=== PATIENT | female | born 1940 | race Hispanic/Latino ===

== ENCOUNTER 2018-09-04 06:48 | Emergency (ER) | payer BC, MEDICARE ==
[2018-09-04 07:25] LABS: BASOPHILS % (AUTO) 0.6 % (0.0-5.0); EOSINOPHILS % (AUTO) 0.3 % (0.0-8.0); HEMATOCRIT 38.2 % (36-48); LYMPHOCYTES % (AUTO) 6.5 % (21.0-51.0); MEAN CORPUSCULAR HEMOGLOBIN 31.5 pg (27.0-33.0); MEAN CORPUSCULAR HGB CONC 33.9 g/dL (32.0-36.0); MEAN CORPUSCULAR VOLUME 92.7 fL (79-99); MONOCYTES % (AUTO) 5.9 % (3.0-13.0); NEUTROPHILS % (AUTO) 86.7 % (40.0-77.0); PLATELET COUNT (AUTO) 162 K/uL (130-400); RED BLOOD CELL COUNT(AUTO) 4.12 MIL/uL (4.00-5.50)
[2018-09-04 07:30] LABS: CREATININE 0.7 mg/dL (0.5-1.5); POTASSIUM 3.6 mmol/L (3.5-5.1)
[2018-09-04 07:37] LABS: INR 0.97 (0.85-1.15); PROTHROMBIN TIME 10.2 SEC (9.6-11.6)
[2018-09-04 07:40] LABS: ALBUMIN 3.2 g/dL (3.5-5.0); BILIRUBIN,TOTAL 0.7 mg/dL (0.2-1.0); TOTAL PROTEIN, SERUM 7.6 g/dL (6.0-8.3)
[2018-09-04] MEDS ORDERED: IOHEXOL 350 MG/ML 100ML INFUS..BTL IV ONE (07:43)
[2018-09-04] MEDS ORDERED: SODIUM CHLORIDE 0.9% 1000ML 1,000 ML IV ONE (08:12)
[2018-09-04 09:03] LABS: APPEARANCE,URINE Clear (CLEAR); BILIRUBIN,URINE Negative (NEGATIVE); COLOR,URINE Yellow (YELLOW); GLUCOSE, URINE (UA) Negative (NEGATIVE); KETONES,URINE Negative (NEGATIVE); LEUKOCYTE ESTERASE ,URINE Negative (NEGATIVE); NITRATE,URINE Negative (NEGATIVE); OCCULT BLOOD,URINE Negative (NEGATIVE); PH,URINE 8.5 (5.0-8.0); PROTEIN,URINE Negative (NEGATIVE); UROBILINOGEN,URINE 0.2 mg/dL (0.2-1.0)
[2018-09-04] MEDS ORDERED: IPRATROPIUM/ALBUTEROL SULFATE 3 ML SOLUTION IH ONE (09:25)
[2018-09-04] MEDS ORDERED: BENZONATATE 100 MG CAPSULE PO ONE (10:06)
[2018-09-04] MEDS ORDERED: ALBUTEROL SULFATE 0.083% 2.5 MG/3 ML INH IH ONE (10:14)
== END 2018-09-04 12:10 | disposition home or self-care (01) ==
LOC: EDH 06:48
DX: S50.812A Abrasion of left forearm, initial encounter (principal); V47.5XXA Car driver injured in collision with fixed or stationary object in traffic accident, initial encounter; Y93.89 Activity, other specified; Y92.89 Other specified places as the place of occurrence of the external cause; Y99.8 Other external cause status
CPT/HCPCS: 36415; 70450; 71260; 72125; 74177; 80053; 81003; 82550; 84484; 85025; 85610; 85730; 93005; 94640 ×2; 99285; J7030; Q9967

== ENCOUNTER 2023-07-24 08:16 | Day surgery (SDC) | payer OTHER ==
[2023-07-22 14:20] VITALS: PULSE 73; RESP 18
[2023-07-22 14:29] LABS: BASOPHILS # (AUTO) 0.03 K/uL (0.00-0.20); BASOPHILS % (AUTO) 0.4 % (0.0-5.0); EOSINOPHILS # (AUTO) 0.12 K/uL (0.00-0.70); EOSINOPHILS % (AUTO) 1.5 % (0.0-8.0); HEMATOCRIT 41.1 % (36-48); IMMATURE GRANULOCYTE ABSOLUTE 0.02 K/uL (0-1); LYMPHOCYTES # (AUTO) 1.8 K/uL (1.0-4.8); LYMPHOCYTES % (AUTO) 22.1 % (21.0-51.0); MEAN CORPUSCULAR HEMOGLOBIN 31.5 pg (27.0-33.0); MEAN CORPUSCULAR HGB CONC 32.6 g/dL (32.0-36.0); MEAN CORPUSCULAR VOLUME 96.5 fL (79-99); MONOCYTES # (AUTO) 0.7 K/uL (0.1-1.0); MONOCYTES % (AUTO) 8.3 % (3.0-13.0); NEUTROPHILS # (AUTO) 5.5 K/uL (1.8-7.7); NEUTROPHILS % (AUTO) 67.5 % (40.0-77.0); PLATELET COUNT (AUTO) 175 K/uL (130-400); RED BLOOD CELL COUNT(AUTO) 4.26 MIL/uL (4.00-5.50); RED CELL DISTRIBUTION WIDTH 13.3 % (11.0-15.5); WHITE BLOOD COUNT (AUTO) 8.1 K/uL (4.8-10.8)
[2023-07-22 14:34] LABS: CREATININE 0.6 mg/dL (0.5-1.0); POTASSIUM 3.7 mmol/L (3.5-5.1)
[2023-07-22 14:35] LABS: APPEARANCE,URINE CLEAR (CLEAR); BILIRUBIN,URINE NEGATIVE (NEGATIVE); COLOR,URINE YELLOW (YELLOW); GLUCOSE, URINE (UA) NEGATIVE (NEGATIVE); KETONES,URINE NEGATIVE (NEGATIVE); LEUKOCYTE ESTERASE ,URINE 500 Leu/uL (NEGATIVE); NITRATE,URINE NEGATIVE (NEGATIVE); OCCULT BLOOD,URINE NEGATIVE (NEGATIVE); PROTEIN,URINE 10 mg/dL (NEGATIVE); UROBILINOGEN,URINE 0.2 mg/dL (0.2-1.0)
[2023-07-22 14:36] LABS: INR <= 0.93 (0.85-1.15); PROTHROMBIN TIME 10.8 SEC (9.6-11.6)
[2023-07-22 14:36] LABS: ADD UA MICROSCOPIC YES
[2023-07-22 14:37] LABS: PARTIAL THROMBOPLASTIN TIME 26.5 SEC (26.3-35.5)
[2023-07-22 14:40] LABS: MUCUS,URINE FEW LPF (None Seen); SQUAMOUS EPITHELIAL CELL,UR RARE /HPF (0-2); WBC,URINE 51-100 /HPF (0-1)
[2023-07-22 15:02] LABS: B-TYPE NATRIURETIC PEPTIDE 111 pg/mL (0-100)
[~2023-07-24] VITALS: Ht 144.8 cm; Wt 61.2 kg
[2023-07-24] VITALS (10 sets, daily range): BP systolic 143–175; BP diastolic 41–60; PULSE 53–68; RESP 11–17
[~2023-07-24 08:16] MED LIST: AMLO-257 PO; APIX5TAB PO; MULT-952 PO
[2023-07-24] MEDS: 0.9%NACL 1000ML 1,000 ML IV ONE (09:00)
[2023-07-24] MEDS ORDERED: METO25TA6 PO (09:02)
[2023-07-24] MEDS ORDERED: MIDAZOLAM HCL 1 MG/ML 2ML VIAL ONE (13:14)
[2023-07-24] MEDS ORDERED: FENTANYL CITRATE PF 50 MCG/1 ML 2ML VIAL ONE (13:14)
[2023-07-24] MEDS ORDERED: LIDOCAINE HCL 400MG/20ML VIAL ONE (13:14)
[2023-07-24] MEDS ORDERED: IOHEXOL 350 MG/ML 100ML INFUS..BTL IV ONE (13:14)
[2023-07-24] MEDS ORDERED: BIVALIRUDIN 250 MG/VIAL IV ONE (13:14)
[2023-07-24] MEDS ORDERED: SODIUM BICARB 50MEQ 50ML VIAL 50 ML ONE (13:14)
[2023-07-24] MEDS ORDERED: IOHEXOL-350 75 ML VIAL IV ONE (13:14)
[2023-07-24] MEDS ORDERED: HEPARIN 10,000 UNIT/10ML (1,000 UNIT/ML) VIAL ONE (13:15)
[2023-07-24] MEDS ORDERED: NITROGLYCERIN 50MG VIAL ONE (13:15)
[2023-07-24] MEDS ORDERED: NICARDIPINE 25MG INJ IV ONE (13:15)
[2023-07-24] MEDS: 0.9% NACL 500ML IV.SOLN 500 ML IV SCH (14:55)
== END 2023-07-24 18:20 | disposition home or self-care (01) ==
LOC: DAH 08:16
PROVIDERS: ATTEND Internal Medicine Cardiovascular Disease
DX: R94.39 Abnormal result of other cardiovascular function study (principal); I25.10 Atherosclerotic heart disease of native coronary artery without angina pectoris; I49.3 Ventricular premature depolarization; I48.0 Paroxysmal atrial fibrillation; I25.2 Old myocardial infarction; I10 Essential (primary) hypertension; Z79.899 Other long term (current) drug therapy; Z98.890 Other specified postprocedural states; Z79.01 Long term (current) use of anticoagulants; Z82.49 Family history of ischemic heart disease and other diseases of the circulatory system
CPT/HCPCS: 80048; 83880; 85025; 85610; 85730; 87088; 81001; 36415; 71045; 93005; 93454; C1894 ×3; C1760; J3010; J3490 ×4; J7030; J1644 ×2; J2250; Q9967; A4215; A4222; A4221; A4663; A4216; A4606; Q9965; A4223 ×3; 96360; 96361; 99156; 99157; J0583

== ENCOUNTER → 2023-10-28 | Outpatient (CLI) | payer OTHER ==
[~2023-10-28] MED LIST changes: +METO25TA6 PO
== END | disposition home or self-care (01) ==
LOC: RAH 09:44
PROVIDERS: ATTEND Internal Medicine
DX: I70.201 Unspecified atherosclerosis of native arteries of extremities, right leg (principal); I70.202 Unspecified atherosclerosis of native arteries of extremities, left leg; R29.898 Other symptoms and signs involving the musculoskeletal system
CPT/HCPCS: 93925

== ENCOUNTER → 2024-01-09 | Outpatient (CLI) | payer OTHER ==
[2024-01-09 11:36] LABS: BASOPHILS # (AUTO) 0.02 K/uL (0.00-0.20); BASOPHILS % (AUTO) 0.3 % (0.0-5.0); EOSINOPHILS # (AUTO) 0.13 K/uL (0.00-0.70); EOSINOPHILS % (AUTO) 1.9 % (0.0-8.0); HEMATOCRIT 40.9 % (36-48); IMMATURE GRANULOCYTE ABSOLUTE 0.02 K/uL (0-1); LYMPHOCYTES # (AUTO) 1.4 K/uL (1.0-4.8); LYMPHOCYTES % (AUTO) 19.7 % (21.0-51.0); MEAN CORPUSCULAR HEMOGLOBIN 31.3 pg (27.0-33.0); MEAN CORPUSCULAR VOLUME 94.9 fL (79-99); MONOCYTES # (AUTO) 0.5 K/uL (0.1-1.0); MONOCYTES % (AUTO) 7.3 % (3.0-13.0); NEUTROPHILS # (AUTO) 4.9 K/uL (1.8-7.7); NEUTROPHILS % (AUTO) 70.5 % (40.0-77.0); PLATELET COUNT (AUTO) 190 K/uL (130-400); RED BLOOD CELL COUNT(AUTO) 4.31 MIL/uL (4.00-5.50); RED CELL DISTRIBUTION WIDTH 12.5 % (11.0-15.5)
[2024-01-09 11:38] LABS: CREATININE 0.8 mg/dL (0.5-1.0); POTASSIUM 3.7 mmol/L (3.5-5.1)
== END | disposition home or self-care (01) ==
LOC: RAH 10:12
PROVIDERS: ATTEND Urology
DX: K57.30 Diverticulosis of large intestine without perforation or abscess without bleeding (principal); K44.9 Diaphragmatic hernia without obstruction or gangrene; K76.0 Fatty (change of) liver, not elsewhere classified; N20.0 Calculus of kidney; R31.29 Other microscopic hematuria; R91.8 Other nonspecific abnormal finding of lung field; I70.90 Unspecified atherosclerosis; M47.815 Spondylosis without myelopathy or radiculopathy, thoracolumbar region
CPT/HCPCS: 36415; 74176; 80048; 85025

== ENCOUNTER → 2024-01-15 | Outpatient (CLI) | payer OTHER ==
[~2024-01-15] MED LIST changes: +IOHEXOL 350 MG/ML 100ML INFUS..BTL IV ONE
== END | disposition home or self-care (01) ==
LOC: RAH 07:57
PROVIDERS: ATTEND Urology
DX: N31.2 Flaccid neuropathic bladder, not elsewhere classified (principal); N20.0 Calculus of kidney; M47.816 Spondylosis without myelopathy or radiculopathy, lumbar region; R31.29 Other microscopic hematuria
CPT/HCPCS: 74400; Q9967

== ENCOUNTER 2024-03-16 11:39 | Observation (INO) | payer OTHER ==
[2024-03-15 10:11] VITALS: BP 199/88; PULSE 73; RESP 19; TEMP 97.3
[2024-03-15 10:19] LABS: HEMATOCRIT 42.7 % (36-48); MEAN CORPUSCULAR HEMOGLOBIN 30.9 pg (27.0-33.0); MEAN CORPUSCULAR HGB CONC 32.3 g/dL (32.0-36.0); MEAN CORPUSCULAR VOLUME 95.5 fL (79-99); RED BLOOD CELL COUNT(AUTO) 4.47 MIL/uL (4.00-5.50); RED CELL DISTRIBUTION WIDTH 12.7 % (11.0-15.5); WHITE BLOOD COUNT (AUTO) 7.7 K/uL (4.8-10.8)
[2024-03-15 10:21] LABS: APPEARANCE,URINE CLEAR (CLEAR); BILIRUBIN,URINE NEGATIVE (NEGATIVE); COLOR,URINE LIGHT-YELLOW (YELLOW); GLUCOSE, URINE (UA) NEGATIVE (NEGATIVE); KETONES,URINE NEGATIVE (NEGATIVE); LEUKOCYTE ESTERASE ,URINE NEGATIVE Leu/uL (NEGATIVE); NITRATE,URINE NEGATIVE (NEGATIVE); OCCULT BLOOD,URINE NEGATIVE (NEGATIVE); PROTEIN,URINE NEGATIVE (NEGATIVE); UROBILINOGEN,URINE 0.2 mg/dL (0.2-1.0)
--- NOTE | 2024-03-15 10:21 | EKG ---
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
[2024-03-15 10:30] LABS: ADD UA MICROSCOPIC NO
[2024-03-15 10:32] LABS: INR 0.98 (0.85-1.15); PROTHROMBIN TIME 10.6 SEC (9.6-11.6)
[2024-03-15 10:34] LABS: PARTIAL THROMBOPLASTIN TIME 24.8 SEC (26.3-35.5)
[2024-03-15 10:35] LABS: ALBUMIN 3.5 g/dL (3.5-5.0); BILIRUBIN,TOTAL 0.7 mg/dL (0.2-1.0); CREATININE 0.7 mg/dL (0.5-1.0)
--- NOTE | 2024-03-15 11:01 | HMCIMG ---
CHEST 2VWS HISTORY: Preop COMPARISON: 07/22/2023 FINDINGS: Frontal and lateral projections of the chest were obtained. There is no acute pulmonary infiltrates or failure. The heart is borderline enlarged. Aortic calcifications are seen. Degenerative changes are seen of the thoracolumbar spine. IMPRESSION: 1. No acute pulmonary infiltrates.
--- NOTE | 2024-03-15 13:17 | HP ---
PROPOSED DATE OF SURGERY: 03/16/2024 CHIEF COMPLAINT: Hematuria with abnormal bladder mucosa. HISTORY OF PRESENT ILLNESS: The patient is an 83-year-old female with abnormal bladder mucosa, scheduled for cystoscopy. Transurethral resection of bladder tumor and bladder biopsy are indicated procedures. Did request to proceed and did provide fully informed consent. No guarantees are given. Did obtain medical clearance for his certification. ALLERGIES: The patient's allergies are none. MEDICATIONS: Include amlodipine as well as metoprolol. PAST SURGICAL HISTORY: Coronary artery stent placement, hysterectomy, and right heart failure. FAMILY HISTORY: Negative for kidney stones. SOCIAL HISTORY: Five children and a . Does not smoke or drink. REVIEW OF SYSTEMS: She has no shortness of breath. No chest pain. Her appetite is good. No nausea, vomiting, constipation, or diarrhea. No headaches or dizziness or epistaxis or nosebleeds. No joint pain, joint swelling, limitation of movement, night sweats, fever, chills, or skin rash. PHYSICAL EXAMINATION: GENERAL: Elderly female. HEENT: Head atraumatic, normocephalic. Pupils are equal and reactive to light and accommodation. Extraocular motions are intact. No discharge from ears, nose, or throat. LUNGS: Lung barton are clear to auscultation. HEART: Heart sounds are best heard in the fifth intercostal space. ABDOMEN: Full, soft, nontender. BACK: No CVA tenderness. GENITALIA AND RECTAL: Deferred. EXTREMITIES: Show no cyanosis, clubbing, or edema. NEUROLOGIC: Remains awake, alert, and adequate. Neurologic grossly intact. No gross sensory deficits. IMPRESSION AND PLAN: Abnormal bladder mucosa with hematuria. She is scheduled for cystoscopy and bladder biopsy of indicated procedures. She has ____ Eliquis already for four days prior to her procedure and did provide fully informed consent. No guarantees are given. TID: [id number] RECEIPT: [id number]
[~2024-03-16] VITALS: Ht 142.2 cm; Wt 61.8 kg
[2024-03-16] VITALS (28 sets, daily range): BP systolic 108–190; BP diastolic 48–89; PULSE 54–78; RESP 6–18; TEMP 97.3–98.4; O2SAT 98–100
[~2024-03-16 11:39] MED LIST changes: -IOHEXOL 350 MG/ML 100ML INFUS..BTL IV ONE; -METO25TA6 PO; -MULT-952 PO
[2024-03-16] MEDS ORDERED: LIDOCAINE PF 100MG/5ML (2%) SYRINGE 5ML ONE (13:02)
[2024-03-16] MEDS ORDERED: proPOFol 10 MG/ML 20ML VIAL IV ONE (13:02)
[2024-03-16] MEDS ORDERED: rocuRONium bROMide 10MG/1ML 5ML VL ONE (13:03)
[2024-03-16] MEDS ORDERED: FENTanyl CITRate PF 50 MCG/1 ML 2ML VIAL ONE (13:03)
[2024-03-16] MEDS: ZOSYN 3.375GM+NS 50ML 50 ML ONE (14:02)
[2024-03-16] MEDS: LACTATED RINGERS 1000ML 1,000 ML IV ONE (14:02)
[2024-03-16] MEDS ORDERED: METO25TA6 PO (14:06)
[2024-03-16] MEDS ORDERED: GLYCOPYRROLATE 0.2 MG/ML 5 ML VIAL ONE (15:08)
[2024-03-16] MEDS: hydrALAZine 20MG/ML VIAL ONE (16:08)
[2024-03-16] MEDS: SUGAMMADEX SODIUM 200 MG/2 ML VIAL IV ONE (16:08)
--- NOTE | 2024-03-16 16:45 | OP ---
DATE OF PROCEDURE: 03/16/2024 PREOPERATIVE DIAGNOSES: Bladder neck polyps and hematuria. PROCEDURE PERFORMED: Cystoscopy, bladder neck polyp biopsies as well as bladder biopsies. POSTOPERATIVE DIAGNOSES: Bladder neck polyps and hematuria. Awaiting pathologic confirmation. ANESTHESIA: General. COMPLICATIONS: None. DRAINS: A 16-Faroese 3-way Saravia catheter. INDICATIONS FOR PROCEDURE: This is an 83-year-old female with microscopic hematuria, multiple bladder polyps at the bladder neck and erythematous mucosa bladder, scheduled for bladder biopsy under anesthesia with bladder polyp biopsies as well. All risks, benefits, alternatives and potential complications of this procedure were reviewed with the patient. Her concerns answered. She did request to proceed and did provide informed consent. FINDINGS: Bladder neck and urethra coapt well. Multiple bladder polyps are noted in the surrounding the entire circumference of the bladder neck. The ureteric normal position with clear bilaterally. No tumors noted in the bladder mucosa. There is area of erythema in the right lateral wall and left lateral wall and these were biopsied. DESCRIPTION OF PROCEDURE: The patient was duly identified, informed consent was confirmed. Timeout was taken. She was then brought to the operating room and placed supine on the operating table. After adequate hemodynamic monitoring had been established by Anesthesiology, the patient underwent smooth induction of general anesthesia by Anesthesiology. Next, she was placed in the dorsal lithotomy position. Genitalia were now thoroughly prepped and draped in usual fashion and rigid cystoscopy was then performed with 30-degree, 70-degree and 12-degree lens with the findings as above. Cold cup biopsy forceps was utilized to biopsy the bladder neck using a 12-degree lens and biopsy was also done of the right and left lateral wall. The sites of biopsy were hemostatic and controlled with Bovie cautery. No active bleeding during the procedure. The patient tolerated the procedure well. No complications. The patient and instruments were now carefully removed under direct vision and a 6-Faroese 3-way Saravia catheter in bladder with efflux of clear urine. The patient was now awakened from anesthesia and was now transferred to the operating to recovery in good stable, very satisfactory condition having suffered no complications. TID: [id number] RECEIPT: [id number]
--- NOTE | 2024-03-16 17:00 | NUR ---
ARRIVED FROM PACU PATIENT ARRIVED FROM PACU, ALERT AND ORIENTED X4, NO DISTRESS, DENIES PAIN, NAUSEA/VOMITING, DENIES OTHER SYMPTOMS. URINE IS PINK AND CLEAR OBSERVED VIA SHEFFIELD CATHETER. VITALS STABLE, 98% ON ROOM AIR. NOTIFIED HOSPITALIST TEAM OF PATIENT'S ARRIVAL FOR MEDICAL MANAGEMENT.
--- NOTE | 2024-03-16 17:20 | NUR ---
CALLED RT FOR INCENTIVE SPIROMETER
[2024-03-17 04:08] VITALS: BP 140/61; PULSE 66; RESP 18; TEMP 98.1
[2024-03-17] MEDS: LACTATED RINGERS 1000ML 1,000 ML IV SCH (04:48)
[2024-03-17] MEDS: ZOSYN 3.375GM +NS 50ML IVPB SCH (04:48)
[2024-03-17] MEDS ORDERED: 0.9%NACL 50ML IV SCH (05:00)
--- NOTE | 2024-03-17 05:08 | CONS ---
[facility] CONSULTATION NOTE Date of Service: Mar 17, 2024 Reason for Consultation: [ Medical management ] Requesting Physician: [Dr.Danilo Valentine ] PCP Aixa Brown HISTORY OF PRESENT ILLNESS: This is an 83 year old female ,Kiswahili speaking with past medical history of hypertension, CHF, atrial fibrillation on chronic anticoagulation Eliquis, ND/ Coronary artery disease with cardiac stent placement and abnormal bladder mucosa who underwent a S/P Cystoscopy with transurethral bladder resection of the bladder tumor and bladder biopsy performed by on 03/16/2024 and Hospitalist is being consulted for medical management. Seen and examined patient in room 412 awake,alert and coherent.Patient appears comfortable.Patient states she feels okay when lying down and only when she moves that bladder area hurts she said.Son was at bedside durinbg my evaluation.Patient has a robb catheter draining to flow of gravity with blood tinged urine .Patient denies fever,chills,chest pain,palpitation and shortness of breath. His vital signs temperature 98.1, heart rate 66, blood pressure 140/61 saturation 96% on room air. Patient is going to be started on IV fluids LR at 50 mL and Zosyn IV.Will continue to follow patient closely. REVIEW OF SYSTEMS CONSTITUTIONAL: Denies fevers, chills, or night sweats. No unintentional weight loss reported. NEUROLOGICAL: Denies headache, amaurosis fugax, motor weakness, sensory def icit, vertigo/spinning sensation, gait abnormalities, or tremors. ENT: No hearing loss, otalgia, otorrhea, rhinitis, rhinorrhea, hoarseness, or sore throat. CARDIOVASCULAR: Denies any exertional angina, dyspnea on exertion, orthopnea, paroxysmal nocturnal dyspnea, palpitations, life-threatening arrhythmias, claudication. PULMONARY: Denies any shortness of breath, cough, phlegm/sputum, hemoptysis, pleuritic chest pain. SLEEP: Denies morning headaches, daytime somnolence or napping. Denies difficulty falling asleep, staying asleep, waking from sleep. Denies knowledge of snoring. GASTROINTESTINAL: Denies any type of dysphagia to either liquids or solids. Denies nausea, vomiting, pyrosis, early satiety, abdominal pain, diarrhea, constipation, or changes in stool consistency or caliber. Denies coffee-ground emesis, hematemesis, hematochezia, or melanotic stools. GENITOURINARY: Positive hematuria Denies frequency, urgency, nocturia,Low urinary stream, straining to void, urinary intermittency or hesitancy, splitting of the voiding stream, terminal dribbling. ENDOCRINOLOGIC: Denies polyuria, polydipsia, polyphagia or heat/cold intolerances. HEMATOLOGIC: Denies thrombophilia/previous clots, or coagulopathy/bleeding disorders. ONCOLOGIC: Denies personal history of malignancy. DERMATOLOGIC: Denies rashes or pruritus. PSYCHIATRIC: Denies any suicidal or homicidal ideation. Denies hallucinations. PAST MEDICAL HISTORY: [hypertension, CHF, atrial fibrillation on chronic anticoagulation Eliquis, ND/ Coronary artery disease & abnormal mucosa of the bladder0 ] PAST SURGICAL HISTORY: [Cardiac stent placement and hysterectomy ] PAST SOCIAL HISTORY: [ Patient lives with son. Patient is a . Patient denies alcohol tobacco and recreational drug use ] FAMILY HISTORY: [ Noncontributory ] Coded Allergies: No Known Drug Allergies (Verified Allergy, 02/15/12) PHYSICAL EXAM GENERAL APPEARANCE: The patient is awake, alert, and oriented, in no acute cardiopulmonary distress. NEUROLOGICAL: Cranial nerves II-XII grossly intact. Motor is 5/5 in bilateral upper and lower extremities proximal to distal. No sensory deficits. HEENT: Face is symmetric. Pupils are equal and reactive. Extraocular movements are intact. NECK: Supple. No JVD. No thyromegaly. No submental, submandibular, pre- /postauricular, occipital or supraclavicular lymphadenopathy. CHEST: Normal chest expansion. No Telemetry. LUNGS: Absence of any rales, rhonchi or any wheezing. CARDIOVASCULAR: Regular. S1 and S2 normal. No appreciable rubs, murmurs or gallops. ABDOMEN: Soft, nontender, and nondistended. There is no rebound, voluntary guarding, or rigidity. : Positive Robb catheter draining blood-tinged urine to flow cavity EXTREMITIES: Non-edematous and not cyanotic. No clubbing. Good capillary refill. SKIN: No skin breakdown. Vital Sign (Last 24 Hours) 03/16/24 03/17/24 20:00 04:08 Temp 98.1 Pulse 66 Resp 18 B/P (MAP) 140/61 Pulse Ox 96 O2 Delivery Room Air O2 Flow Rate 0 FiO2 21 Intake & Output (last 24hrs) 03/16/24 03/16/24 03/17/24 15:00 23:00 07:00 Intake Total 900.0 ml Output Total 475 ml Balance 425.0 ml LABS: Laboratory: Test 03/15/24 09:47 03/15/24 09:43 Range/Units White Blood Count 7.7 4.8-10.8 K/uL Red Blood Count 4.47 4.00-5.50 MIL/uL Hemoglobin 13.8 12.0-16.0 g/dL Hematocrit 42.7 36-48 % Mean Corpuscular Volume 95.5 79-99 fL Mean Corpuscular Hemoglobin 30.9 27.0-33.0 pg Mean Corpuscular Hemoglobin Concent 32.3 32.0-36.0 g/dL Red Cell Distribution Width 12.7 11.0-15.5 % Platelet Count 199 130-400 K/uL Mean Platelet Volume 10.5 7.5-10.5 fL Nucleated Red Blood Cells 0.0 0.0-0.19 % Prothrombin Time 10.6 9.6-11.6 SEC Prothromb Time International Ratio 0.98 0.85-1.15 Activated Partial Thromboplast Time 24.8 L 26.3-35.5 SEC Sodium Level 142 136-145 mmol/L Potassium Level 4.0 3.5-5.1 mmol/L Chloride Level 108 101-111 mmol/L Carbon Dioxide Level 27 21-32 mmol/L Blood Urea Nitrogen 28 H 7-18 mg/dL Creatinine 0.7 0.5-1.0 mg/dL Glomerular Filtration Rate Calc 86 >90 mL/min Random Glucose 106 H 70-105 mg/dL Total Calcium 8.9 8.5-10.1 mg/dL Total Bilirubin 0.7 0.2-1.0 mg/dL Aspartate Amino Transf (AST/SGOT) 24 10-37 U/L Alanine Aminotransferase (ALT/SGPT) 32 12-78 U/L Alkaline Phosphatase 93 50-136 U/L Total Protein 8.0 6.0-8.3 g/dL Albumin 3.5 3.5-5.0 g/dL Urine Color LIGHT-YELLOW YELLOW Urine Appearance CLEAR CLEAR Urine pH 5.0 5.0-8.0 Urine Specific Clawson 1.019 1.001-1.031 Urine Protein NEGATIVE NEGATIVE mg/dL Urine Glucose (UA) NEGATIVE NEGATIVE mg/dL Urine Ketones NEGATIVE NEGATIVE mg/dL Urine Occult Blood NEGATIVE NEGATIVE Urine Nitrate NEGATIVE NEGATIVE Urine Bilirubin NEGATIVE NEGATIVE mg/dL Urine Urobilinogen 0.2 0.2-1.0 mg/dL Urine Leukocyte Esterase NEGATIVE NEGATIVE Leonard/uL DIAGNOSTICS / RADIOLOGY: [ ] ASSESSMENT: Abnormal mucosa of the bladder POA S/P Cystoscopy with transurethral bladder resection of the bladder tumor and bladder biopsy performed by on 03/16/2024 POA Hypertension POA History of Coronary artery disease with cardiac stent POA History of CHF POA History of Atrial fibrillation on anticoagulation POA PLAN: We will admit patient in medical surgical floor Patient on heart healthy diet We will continue NS @ 50 ml / hr for gentle hydration We will continue Zosyn IV Q 8 hours for empiric coverage We will start on Famotidine 20 mg p.o. bid for GI prophylaxis We will replace electrolytes as needed per protocol We will add prn medication for fever,pain,cough ,nausea & vomiting We will reconcile home meds once medlist available We will check labs in a.m. Further recommendation to follow depending on above results Case discussed with attending physician and came up with above treatment and plan of care. ADVANCED CARE PLANNING 1. Which of the following were discussed? Hospice Care - No Therapeutic options - Yes Advance Directives - No Other discussions - 2. Discussed with who? Patient 3. Voluntary nature of this service was explained to the patient? Yes 4. Amount of time spent - 20 5. Reviewed by Physician? (if this service was performed by NPP) Yes Patient seen and examined by me. Agree with note by MANAGER STRATEGY SEE ADDITIONAL ORDERS PER CHART DISCUSSED WITH NURSING STAFF JEFRY ARCOSP Mar 17, 2024 05:08
[2024-03-17] MEDS ORDERED: PoTASSium chl 10% ELIXIR 20MEQ 20 MEQ/15 ML UDCUP PO PRN (05:30)
[2024-03-17] MEDS ORDERED: PoTASSium chloRIDE 20MEQ ER 20 MEQ ERTAB PO PRN (05:30)
[2024-03-17] MEDS ORDERED: PoTASSium chloRIDE 20MEQ/100ML 100 ML IV PRN (05:30)
[2024-03-17] MEDS ORDERED: MAGNESIUM 2GM PREMIX 50ML 50 ML IV PRN (05:30)
[2024-03-17 06:59] LABS: BASOPHILS # (AUTO) 0.01 K/uL (0.00-0.20); BASOPHILS % (AUTO) 0.1 % (0.0-5.0); EOSINOPHILS # (AUTO) 0.04 K/uL (0.00-0.70); EOSINOPHILS % (AUTO) 0.4 % (0.0-8.0); HEMATOCRIT 37.6 % (36-48); IMMATURE GRANULOCYTE ABSOLUTE 0.04 K/uL (0-1); LYMPHOCYTES # (AUTO) 1.4 K/uL (1.0-4.8); LYMPHOCYTES % (AUTO) 13.2 % (21.0-51.0); MEAN CORPUSCULAR HEMOGLOBIN 31.6 pg (27.0-33.0); MEAN CORPUSCULAR HGB CONC 33.5 g/dL (32.0-36.0); MEAN CORPUSCULAR VOLUME 94.2 fL (79-99); MONOCYTES # (AUTO) 0.7 K/uL (0.1-1.0); MONOCYTES % (AUTO) 6.6 % (3.0-13.0); NEUTROPHILS # (AUTO) 8.4 K/uL (1.8-7.7); NEUTROPHILS % (AUTO) 79.3 % (40.0-77.0); PLATELET COUNT (AUTO) 180 K/uL (130-400); RED BLOOD CELL COUNT(AUTO) 3.99 MIL/uL (4.00-5.50); RED CELL DISTRIBUTION WIDTH 12.9 % (11.0-15.5); WHITE BLOOD COUNT (AUTO) 10.5 K/uL (4.8-10.8)
[2024-03-17 07:07] LABS: HEMOGLOBIN A1C 5.7 % (4.0-6.0)
[2024-03-17 07:15] LABS: BILIRUBIN,TOTAL 0.8 mg/dL (0.2-1.0); CREATININE 0.7 mg/dL (0.5-1.0); POTASSIUM 3.5 mmol/L (3.5-5.1); TOTAL PROTEIN, SERUM 6.7 g/dL (6.0-8.3)
[2024-03-17 08:00] VITALS: BP 108/60; PULSE 65; RESP 18; TEMP 98.9; O2SAT 98
[2024-03-17] MEDS: APIXaban 5 MG TABLET PO SCH (08:34)
[2024-03-17] MEDS: FAMOTIDINE 20MG TAB PO SCH (08:34)
[2024-03-17] MEDS: acetaMINOPHEN 325 MG TAB PO PRN (08:43)
[2024-03-17] MEDS: amLODIPine 5 MG TAB PO SCH (08:45)
[2024-03-17] MEDS: metoPROLOL tartRATE 25 MG TAB PO SCH (08:45)
[2024-03-17 12:14] VITALS: BP 116/51; PULSE 64; RESP 19; TEMP 98.4
--- NOTE | 2024-03-17 12:29 | NUR ---
DCP CM MET WITH PT ASSESSMENT DONE. PATIENT IS INDEPENDENT PRIOR TO SURGERY, LIVES AT HOME WITH SON. DENIES ANY EQUIPMENT/SERVICES. FEELS SAFE TO GO BACK HOME, SON ABLE TO ASSIST WITH TRANSPORTATION AND NEEDS NECESSARY. DCP HOME ONCE STABLE. CM TO CONTINUE TO FOLLOW UP. Addendum: 03/17/24 at 1230 by JURGEN MCMILLAN LVN CM Amended: Links added.
--- NOTE | 2024-03-17 13:14 | PN ---
[facility] PROGRESS NOTE Date of Service: Mar 17, 2024 Time of Service: 11:38 SUBJECTIVE: 03/17 - patient is a 83 year old Bengali speaking female s/p day 1 cystoscopy with transurethral bladder resection of the bladder tumor and bladder biopsy performed by Dr. Valentine. Patient was seen at bedside, afebrile, BP 108/60, saturating well on room air. Patient complains of mild discomfort in the lower abdomen. She continues on LR 50ml/hr and IV Zosyn. Urine output is yellow and pain is being managed with Tylenol. Labs: white count WNL, H&H stable, chemistries unremarkable. We appreciate the consult and will continue to medically manage pending clearance from Urology. REVIEW OF SYSTEMS CONSTITUTIONAL: Denies fevers, chills, or night sweats. No unintentional weight loss reported. NEUROLOGICAL: Denies headache, amaurosis fugax, motor weakness, sensory deficit, vertigo/spinning sensation, gait abnormalities, or tremors. ENT: No hearing loss, otalgia, otorrhea, rhinitis, rhinorrhea, hoarseness, or sore throat. CARDIOVASCULAR: Denies any exertional angina, dyspnea on exertion, orthopnea, paroxysmal nocturnal dyspnea, palpitations, life-threatening arrhythmias, c laudication. PULMONARY: Denies any shortness of breath, cough, phlegm/sputum, hemoptysis, pleuritic chest pain. SLEEP: Denies morning headaches, daytime somnolence or napping. Denies difficulty falling asleep, staying asleep, waking from sleep. Denies knowledge of snoring. GASTROINTESTINAL: Denies any type of dysphagia to either liquids or solids. Denies nausea, vomiting, pyrosis, early satiety, abdominal pain, diarrhea, cons tipation, or changes in stool consistency or caliber. Denies coffee-ground emesis, hematemesis, hematochezia, or melanotic stools. GENITOURINARY: Positive hematuria Denies frequency, urgency, nocturia,Low urinary stream, straining to void, urinary intermittency or hesitancy, splitting of the voiding stream, terminal dribbling. ENDOCRINOLOGIC: Denies polyuria, polydipsia, polyphagia or heat/cold intolerances. HEMATOLOGIC: Denies thrombophilia/previous clots, or coagulopathy/bleeding disorders. ONCOLOGIC: Denies personal history of malignancy. DERMATOLOGIC: Denies rashes or pruritus. PSYCHIATRIC: Denies any suicidal or homicidal ideation. Denies hallucinations. PHYSICAL EXAM GENERAL APPEARANCE: The patient is awake, alert, and oriented, in no acute cardiopulmonary distress. NEUROLOGICAL: Cranial nerves II-XII grossly intact. Motor is 5/5 in bilateral upper and lower extremities proximal to distal. No sensory deficits. HEENT: Face is symmetric. Pupils are equal and reactive. Extraocular movements are intact. NECK: Supple. No JVD. No thyromegaly. No submental, submandibular, pre- /postauricular, occipital or supraclavicular lymphadenopathy. CHEST: Normal chest expansion. No Telemetry. LUNGS: Absence of any rales, rhonchi or any wheezing. CARDIOVASCULAR: Regular. S1 and S2 normal. No appreciable rubs, murmurs or gallops. ABDOMEN: Soft, nontender, and nondistended. There is no rebound, voluntary guarding, or rigidity. : Positive Saravia catheter draining yellow urine to flow cavity EXTREMITIES: Non-edematous and not cyanotic. No clubbing. Good capillary refill. SKIN: No skin breakdown. Vital Signs (last 8hr) Date Time Temp Pulse Resp B/P (MAP) Pulse Ox O2 Delivery O2 Flow Rate FiO2 03/17/24 08:00 98 Room Air* 0 21 03/17/24 08:00 99.0 65 18 108/60 95 Room Air 03/17/24 04:08 98.1 66 18 140/61 96 Room Air 21 LABS: Laboratory: Test 03/17/24 06:45 Range/Units White Blood Count 10.5 4.8-10.8 K/uL Red Blood Count 3.99 L 4.00-5.50 MIL/uL Hemoglobin 12.6 12.0-16.0 g/dL Hematocrit 37.6 36-48 % Mean Corpuscular Volume 94.2 79-99 fL Mean Corpuscular Hemoglobin 31.6 27.0-33.0 pg Mean Corpuscular Hemoglobin Concent 33.5 32.0-36.0 g/dL Red Cell Distribution Width 12.9 11.0-15.5 % Platelet Count 180 130-400 K/uL Mean Platelet Volume 10.9 H 7.5-10.5 fL Immature Granulocyte % (Auto) 0.4 0-1 % Neutrophils (%) (Auto) 79.3 H 40.0-77.0 % Lymphocytes (%) (Auto) 13.2 L 21.0-51.0 % Monocytes (%) (Auto) 6.6 3.0-13.0 % Eosinophils (%) (Auto) 0.4 0.0-8.0 % Basophils (%) (Auto) 0.1 0.0-5.0 % Neutrophils # (Auto) 8.4 H 1.8-7.7 K/uL Lymphocytes # (Auto) 1.4 1.0-4.8 K/uL Monocytes # (Auto) 0.7 0.1-1.0 K/uL Eosinophils # (Auto) 0.04 0.00-0.70 K/uL Basophils # (Auto) 0.01 0.00-0.20 K/uL Absolute Immature Granulocyte (auto 0.04 0-1 K/uL Nucleated Red Blood Cells 0.0 0.0-0.19 % Sodium Level 141 136-145 mmol/L Potassium Level 3.5 3.5-5.1 mmol/L Chloride Level 108 101-111 mmol/L Carbon Dioxide Level 26 21-32 mmol/L Blood Urea Nitrogen 16 7-18 mg/dL Creatinine 0.7 0.5-1.0 mg/dL Glomerular Filtration Rate Calc 86 >90 mL/min Random Glucose 110 H 70-105 mg/dL Hemoglobin A1c 5.7 4.0-6.0 % Estimated Average Glucose (eAG) 117 70-126 mg/dL Total Calcium 8.1 L 8.5-10.1 mg/dL Total Bilirubin 0.8 0.2-1.0 mg/dL Aspartate Amino Transf (AST/SGOT) 27 10-37 U/L Alanine Aminotransferase (ALT/SGPT) 25 12-78 U/L Alkaline Phosphatase 72 50-136 U/L Total Protein 6.7 6.0-8.3 g/dL Albumin 3.0 L 3.5-5.0 g/dL Current Medications Medications (Trade) Dose Ordered Sig/Julianne Route PRN Reason Start Time Stop Time Status Last Admin Dose Admin Acetaminophen (TYLenol 325MG TAB) 650 mg Q4H PRN PO PAIN LEVEL 1 TO 3 03/17/24 04:30 04/16/24 04:29 03/17/24 08:43 650 MG Amlodipine Besylate (NorvASC 5MG TAB) 5 mg DAILY PO 03/17/24 09:00 04/16/24 08:59 Apixaban (EliquIS) 5 mg BID PO 03/17/24 09:00 04/16/24 08:59 03/17/24 08:34 5 MG Famotidine (Pepcid 20mg Tab) 20 mg DAILY PO 03/17/24 09:00 04/16/24 08:59 03/17/24 08:34 20 MG Lactated Ringer's 1,000 ml @ 50 mls/hr Q20H IV 03/17/24 04:30 04/16/24 04:29 03/17/24 04:48 50 MLS/HR Magnesium Sulfate 50 ml @ 0 mls/hr PROTOCOL PRN IV OTHER [SEE ORDER COMMENTS] 03/17/24 05:30 04/16/24 05:29 Metoprolol Tartrate (loprESSOR) 25 mg BID PO 03/17/24 09:00 04/16/24 08:59 Piperacillin Sod/ Tazobactam Sod (Zosyn 3.375gm+NS 50ml) 3.375 gm Q8H IVPB 03/17/24 04:30 03/27/24 04:29 03/17/24 04:48 3.375 GM Potassium Chloride 100 ml @ 100 mls/hr AD PRN IV POTASSIUM PROTOCOL 03/17/24 05:30 04/16/24 05:29 Potassium Chloride (K-Dur/Klor-Con 20meq) 20 meq AD PRN PO POTASSIUM PROTOCOL 03/17/24 05:30 04/16/24 05:29 Potassium Chloride (KCl 10% Elixir 20meq/15ml) 20 meq AD PRN PO POTASSIUM PROTOCOL 03/17/24 05:30 04/16/24 05:29 Sodium Chloride (NS 50ml) 50 ml AD IV 03/17/24 05:00 04/17/24 05:00 DIAGNOSTICS / RADIOLOGY: [ ] ASSESSMENT: Abnormal mucosa of the bladder POA S/P Cystoscopy with transurethral bladder resection of the bladder tumor and bladder biopsy performed by on 03/16/2024 POA Hypertension POA History of Coronary artery disease with cardiac stent POA History of CHF POA History of Atrial fibrillation on anticoagulation POA PLAN: Patient on heart healthy diet Continue NS @ 50 ml / hr for gentle hydration Continue Zosyn IV Q 8 hours for empiric coverage Famotidine 20 mg p.o. bid for GI prophylaxis Replace electrolytes as needed per protocol prn medication for fever,pain,cough ,nausea & vomiting We will check labs in a.m. Further recommendation to follow depending on above results Case discussed with attending physician and came up with above treatment and plan of care. ATTESTATION BY PHYSICIAN I have seen and examined the patient. I reviewed the documentation, medical decision making, and treatment plan as noted by the resident provider above. I agree with the findings and plan of care. Misti Beltrán MD, PRIYA N Mar 17, 2024 13:14
[2024-03-17 16:13] VITALS: BP 115/44; PULSE 60; RESP 18; TEMP 98.3
[2024-03-17 20:00] VITALS: BP 124/38; PULSE 65; RESP 20; TEMP 98.5
[2024-03-17 20:10] VITALS: O2SAT 94
[2024-03-18] VITALS: BP 118/38; PULSE 59; RESP 18; TEMP 98.6
--- NOTE | 2024-03-18 03:01 | DS ---
PRINCIPAL DIAGNOSIS: Hematuria. PRINCIPAL PROCEDURE PERFORMED: Multiple bladder biopsies. BRIEF HISTORY: An 83-year-old female with persistent microscopic hematuria, noted to have multiple large polyps in the bladder, scheduled for bladder biopsy, indicated procedures. PHYSICAL EXAMINATION: Elderly female, in no distress. BRIEF HOSPITAL COURSE: The patient was admitted on 03/16/2024, underwent a cystoscopy with bladder biopsies and bladder neck biopsy on that date. On postoperative day #1, the patient is tolerating diet. Urine is clear. White count is 10, hematocrit is 37, platelet count is 180. Hemoglobin A1c is 5.7. Sodium is 142, her potassium 3.5 while her creatinine is 0.7. RECOMMENDATIONS: The patient is therefore discharged home in improved condition, Saravia bag at night. She is given Augmentin 5 mg b.i.d. for 5 days and extra strength Tylenol as needed for pain. DISPOSITION: Home. DISCHARGE CONDITION: Improved. Follow up with me in my office later this week or next week for review of pathology report as well as removal of Saravia catheter. TID: [id number] RECEIPT: [id number]
[2024-03-18 04:00] VITALS: BP 132/38; PULSE 54; RESP 18; TEMP 98.6
[2024-03-18 08:00] VITALS: BP 125/58; PULSE 57; RESP 19; TEMP 98.3; O2SAT 95
[2024-03-18 12:10] VITALS: BP 144/62; PULSE 77; RESP 19; TEMP 98
[2024-03-18 16:10] VITALS: BP 159/53; PULSE 64; RESP 19; TEMP 98.2
--- NOTE | 2024-03-18 17:15 | PN ---
[facility] PROGRESS NOTE Date of Service: Mar 18, 2024 Time of Service: 16:32 SUBJECTIVE: 03/17 - patient is a 83 year old Maltese speaking female s/p day 1 cystoscopy with transurethral bladder resection of the bladder tumor and bladder biopsy performed by Dr. Valentine. Patient was seen at bedside, afebrile, BP 108/60, saturating well on room air. Patient complains of mild discomfort in the lower abdomen. She continues on LR 50ml/hr and IV Zosyn. Urine output is yellow and pain is being managed with Tylenol. Labs: white count WNL, H&H stable, chemistries unremarkable. We appreciate the consult and will continue to medically manage pending clearance from Urology. 03/18 - patient seen at bedside s/p day 2 cystoscopy with transurethral bladder resection of the bladder tumor and bladder biopsy performed by Dr. Valentine. Patient denies pain, fever, chills, shortness of breath. She is saturating well on room air, afebrile, and normotensive. Patient is hemodynamically stable and will be discharged home today with the Saravia catheter and leg bag. Advised patient to follow up with Dr. Valentine in his office om Friday or Friday for stent removal. Patient will also receive antibiotics per Urology. REVIEW OF SYSTEMS CONSTITUTIONAL: Denies fevers, chills, or night sweats. No unintentional weight loss reported. NEUROLOGICAL: Denies headache, amaurosis fugax, motor weakness, sensory deficit, vertigo/spinning sensation, gait abnormalities, or tremors. ENT: No hearing loss, otalgia, otorrhea, rhinitis, rhinorrhea, hoarseness, or sore throat. CARDIOVASCULAR: Denies any exertional angina, dyspnea on exertion, orthopnea, paroxysmal nocturnal dyspnea, palpitations, life-threatening arrhythmias, claudication. PULMONARY: Denies any shortness of breath, cough, phlegm/sputum, hemoptysis, pleuritic chest pain. SLEEP: Denies morning headaches, daytime somnolence or napping. Denies di fficulty falling asleep, staying asleep, waking from sleep. Denies knowledge of snoring. GASTROINTESTINAL: Denies any type of dysphagia to either liquids or solids. Denies nausea, vomiting, pyrosis, early satiety, abdominal pain, diarrhea, constipation, or changes in stool consistency or caliber. Denies coffee-ground emesis, hematemesis, hematochezia, or melanotic stools. GENITOURINARY: Positive hematuria Denies frequency, urgency, nocturia,Low urinary stream, straining to void, urinary intermittency or hesitancy, splitting of the voiding stream, terminal dribbling. ENDOCRINOLOGIC: Denies polyuria, polydipsia, polyphagia or heat/cold intolerances. HEMATOLOGIC: Denies thrombophilia/previous clots, or coagulopathy/bleeding disorders. ONCOLOGIC: Denies personal history of malignancy. DERMATOLOGIC: Denies rashes or pruritus. PSYCHIATRIC: Denies any suicidal or homicidal ideation. Denies hallucinations. PHYSICAL EXAM GENERAL APPEARANCE: The patient is awake, alert, and oriented, in no acute cardiopulmonary distress. NEUROLOGICAL: Cranial nerves II-XII grossly intact. Motor is 5/5 in bilateral upper and lower extremities proximal to distal. No sensory deficits. HEENT: Face is symmetric. Pupils are equal and reactive. Extraocular movements are intact. NECK: Supple. No JVD. No thyromegaly. No submental, submandibular, pre- /postauricular, occipital or supraclavicular lymphadenopathy. CHEST: Normal chest expansion. No Telemetry. LUNGS: Absence of any rales, rhonchi or any wheezing. CARDIOVASCULAR: Regular. S1 and S2 normal. No appreciable rubs, murmurs or gallops. ABDOMEN: Soft, nontender, and nondistended. There is no rebound, voluntary guarding, or rigidity. : Positive Saravia catheter draining yellow urine to flow cavity EXTREMITIES: Non-edematous and not cyanotic. No clubbing. Good capillary refill. SKIN: No skin breakdown. Vital Signs (last 8hr) Date Time Temp Pulse Resp B/P (MAP) Pulse Ox O2 Delivery O2 Flow Rate FiO2 03/18/24 16:10 98.2 64 19 159/53 94 Room Air 03/18/24 12:10 98.1 77 19 144/62 97 Room Air LABS: Laboratory: Test 03/17/24 06:45 Range/Units White Blood Count 10.5 4.8-10.8 K/uL Red Blood Count 3.99 L 4.00-5.50 MIL/uL Hemoglobin 12.6 12.0-16.0 g/dL Hematocrit 37.6 36-48 % Mean Corpuscular Volume 94.2 79-99 fL Mean Corpuscular Hemoglobin 31.6 27.0-33.0 pg Mean Corpuscular Hemoglobin Concent 33.5 32.0-36.0 g/dL Red Cell Distribution Width 12.9 11.0-15.5 % Platelet Count 180 130-400 K/uL Mean Platelet Volume 10.9 H 7.5-10.5 fL Immature Granulocyte % (Auto) 0.4 0-1 % Neutrophils (%) (Auto) 79.3 H 40.0-77.0 % Lymphocytes (%) (Auto) 13.2 L 21.0-51.0 % Monocytes (%) (Auto) 6.6 3.0-13.0 % Eosinophils (%) (Auto) 0.4 0.0-8.0 % Basophils (%) (Auto) 0.1 0.0-5.0 % Neutrophils # (Auto) 8.4 H 1.8-7.7 K/uL Lymphocytes # (Auto) 1.4 1.0-4.8 K/uL Monocytes # (Auto) 0.7 0.1-1.0 K/uL Eosinophils # (Auto) 0.04 0.00-0.70 K/uL Basophils # (Auto) 0.01 0.00-0.20 K/uL Absolute Immature Granulocyte (auto 0.04 0-1 K/uL Nucleated Red Blood Cells 0.0 0.0-0.19 % Sodium Level 141 136-145 mmol/L Potassium Level 3.5 3.5-5.1 mmol/L Chloride Level 108 101-111 mmol/L Carbon Dioxide Level 26 21-32 mmol/L Blood Urea Nitrogen 16 7-18 mg/dL Creatinine 0.7 0.5-1.0 mg/dL Glomerular Filtration Rate Calc 86 >90 mL/min Random Glucose 110 H 70-105 mg/dL Hemoglobin A1c 5.7 4.0-6.0 % Estimated Average Glucose (eAG) 117 70-126 mg/dL Total Calcium 8.1 L 8.5-10.1 mg/dL Total Bilirubin 0.8 0.2-1.0 mg/dL Aspartate Amino Transf (AST/SGOT) 27 10-37 U/L Alanine Aminotransferase (ALT/SGPT) 25 12-78 U/L Alkaline Phosphatase 72 50-136 U/L Total Protein 6.7 6.0-8.3 g/dL Albumin 3.0 L 3.5-5.0 g/dL Current Medications Medications (Trade) Dose Ordered Sig/Julianne Route PRN Reason Start Time Stop Time Status Last Admin Dose Admin Acetaminophen (TYLenol 325MG TAB) 650 mg Q4H PRN PO PAIN LEVEL 1 TO 3 03/17/24 04:30 04/16/24 04:29 03/17/24 08:43 650 MG Amlodipine Besylate (NorvASC 5MG TAB) 5 mg DAILY PO 03/17/24 09:00 04/16/24 08:59 Apixaban (EliquIS) 5 mg BID PO 03/17/24 09:00 04/16/24 08:59 03/18/24 09:06 5 MG Famotidine (Pepcid 20mg Tab) 20 mg DAILY PO 03/17/24 09:00 04/16/24 08:59 03/18/24 09:06 20 MG Lactated Ringer's 1,000 ml @ 50 mls/hr Q20H IV 03/17/24 04:30 04/16/24 04:29 03/17/24 04:48 50 MLS/HR Magnesium Sulfate 50 ml @ 0 mls/hr PROTOCOL PRN IV OTHER [SEE ORDER COMMENTS] 03/17/24 05:30 04/16/24 05:29 Metoprolol Tartrate (loprESSOR) 25 mg BID PO 03/17/24 09:00 04/16/24 08:59 03/17/24 20:12 25 MG Piperacillin Sod/ Tazobactam Sod (Zosyn 3.375gm+NS 50ml) 3.375 gm Q8H IVPB 03/17/24 04:30 03/27/24 04:29 03/18/24 04:51 3.375 GM Potassium Chloride 100 ml @ 100 mls/hr AD PRN IV POTASSIUM PROTOCOL 03/17/24 05:30 04/16/24 05:29 Potassium Chloride (K-Dur/Klor-Con 20meq) 20 meq AD PRN PO POTASSIUM PROTOCOL 03/17/24 05:30 04/16/24 05:29 Potassium Chloride (KCl 10% Elixir 20meq/15ml) 20 meq AD PRN PO POTASSIUM PROTOCOL 03/17/24 05:30 04/16/24 05:29 Sodium Chloride (NS 50ml) 50 ml AD IV 03/17/24 05:00 04/17/24 05:00 DIAGNOSTICS / RADIOLOGY: ASSESSMENT: Abnormal mucosa of the bladder POA S/P Cystoscopy with transurethral bladder resection of the bladder tumor and bladder biopsy performed by on 03/16/2024 POA Hypertension POA History of Coronary artery disease with cardiac stent POA History of CHF POA History of Atrial fibrillation on anticoagulation POA ATTESTATION BY PHYSICIAN I have seen and examined the patient. I reviewed the documentation, medical decision making, and treatment plan as noted by the resident provider above. I agree with the findings and plan of care. Misti Beltrán MD, PRIYA N Mar 18, 2024 17:15
--- NOTE | 2024-03-18 18:38 | NUR ---
D/C INSTRUCTIONS D/C INSTRUCTION PROVIDED AND ACKNOWLEDGED. IV REMOVED. SHEFFIELD LEG BAG/BAND GIVEN AND INSTRUCTED ON USE
== END 2024-03-18 19:05 | disposition home or self-care (01) ==
LOC: DAH 11:39 → DAHIP 11:40 → 4BH 17:05
PROVIDERS: ADMIT Urology; ATTEND Urology
DX: D49.4 Neoplasm of unspecified behavior of bladder (principal); R31.0 Gross hematuria; R31.29 Other microscopic hematuria; D68.59 Other primary thrombophilia; I48.0 Paroxysmal atrial fibrillation; I11.0 Hypertensive heart disease with heart failure; I50.810 Right heart failure, unspecified; I25.2 Old myocardial infarction; I25.10 Atherosclerotic heart disease of native coronary artery without angina pectoris; Z90.710 Acquired absence of both cervix and uterus; Z95.5 Presence of coronary angioplasty implant and graft; Z79.01 Long term (current) use of anticoagulants; Z79.899 Other long term (current) drug therapy
CPT/HCPCS: 80053 ×2; 85027; 85610; 85730; 87086; 81003; 36415 ×2; 71046; 93005; 52234; 88305; 96365; 96366 ×2; 83036; 85025; A6260; G0378 ×51; A4600; A4663; A4354; J7120; J3010; J3490 ×2; J2003; J0360; J2704; J2543 ×5; A4358; A4649; A4930; A4215; A4223; A4222; A4221; J9280

== ENCOUNTER → 2024-12-01 | Outpatient (CLI) | payer OTHER ==
[~2024-12-01] MED LIST changes: +IOHEXOL-350 50ML VIAL IV ONE; +METO25TA6 PO
--- NOTE | 2024-12-01 12:18 | HMCIMG ---
IVP W/WO TOMOGRAMS CLINICAL HISTORY: Microscopic hematuria. COMPARISON: None. TECHNIQUES: Intravenous excretory urogram was performed. FINDINGS: A instructional leader film of the abdomen shows no soft tissue abnormality and no pathologic calcification overlying the renal contour or bladder noted. There is osteopenia of the osseous structure. There is levoscoliosis of the lumbar spine with osteopenic changes. Following intravenous infusion of 100 mL Omnipaque 350 contrast material, there is prompt symmetrical concentration as noted by nephrograms. No filling defect of the collecting systems are noted. There is normal and symmetrical filling of the calyceal system. Subsequent films demonstrate that the kidneys are of normal size and contour bilaterally. The calyceal system and ureters are in their usual position and show no signs of obstruction or intraluminal defects. The post void film shows normal emptying of the collecting system including the urinary bladder. IMPRESSION: Negative intravenous urogram.
== END | disposition home or self-care (01) ==
LOC: RAH 09:02
PROVIDERS: ATTEND Urology
DX: R31.29 Other microscopic hematuria (principal); M85.88 Other specified disorders of bone density and structure, other site; M41.86 Other forms of scoliosis, lumbar region
CPT/HCPCS: 74400; Q9967